=== PATIENT | male | born 1950 | race Caucasian/White ===

== ENCOUNTER → 2025-05-05 13:02 | Outpatient (REF) | payer MEDICARE, OTHER, SELFPAY | LOC: HWEVLT 13:02 | PROVIDERS: ATTENDING PHYSICIAN Radiology Vascular & Interventional Radiology | DX: I83.892 Varicose veins of left lower extremity with other complications (principal) | CPT/HCPCS: 93971 ==

== ENCOUNTER → 2025-07-27 14:36 | Outpatient (REF) | payer MEDICARE, OTHER, SELFPAY | LOC: HWEVLT 14:36 | PROVIDERS: ATTENDING PHYSICIAN Radiology Vascular & Interventional Radiology | DX: I83.892 Varicose veins of left lower extremity with other complications (principal) | CPT/HCPCS: 36478; C1769 ==

== ENCOUNTER → 2025-08-09 09:59 | Outpatient (REF) | payer MEDICARE, OTHER, SELFPAY | LOC: HWEVLT 09:59 | PROVIDERS: ATTENDING PHYSICIAN Radiology Vascular & Interventional Radiology | DX: I83.892 Varicose veins of left lower extremity with other complications (principal) | CPT/HCPCS: 93971 ==